=== PATIENT | female | born 1940 | race Caucasian/White ===

== ENCOUNTER 2018-04-01 08:02 | Day surgery (SDC) | payer MEDICARE, SELFPAY ==
[2018-03-30 11:08] LABS: Hemoglobin 13.9 g/dl (12.0-15.0); Mean Corp Hgb Conc 31.6 g/gl (32-36); Mean Corpuscular Hgb 27.5 pg (27.0-32.0); Mean Corpuscular Volume 87.1 fL (81-99); Mean Platelet Vol. 9.8 fl (6.2-12.0); Platelet Count 297 K/mm3 (150-450); RBC Distribution Width SD 44.1 fl (35.1-43.9); Red Blood Count 5.05 M/mm3 (4.2-5.4); Scan Indicated on CBC? Y/N NO
[2018-04-01 08:30] VITALS: BP 140/76; PULSE 56; RESP 16; TEMP 36.2; O2SAT 98; BMI 34.9
--- NOTE | 2018-04-01 10:18 | PCM.DC.D&C ---
Discharge Diet: No Restrictions Discharge Activity: Return to Normal Activity, May Shower, May Take a Tub Bath - in 2 weeks. May resume sexual activity in: No Restrictions Allergies/Adverse Reactions: Allergies No Known Allergies Allergy (Verified 03/25/18 13:06) Medications to take at Discharge Bisacodyl [Dulcolax] 5 mg PO DAILY 03/25/18 Ibuprofen 200 mg PO PRN PRN 03/25/18 Metoprolol Tartrate [Lopressor (Beta Claudette)] 12.5 mg PO BID 03/25/18 Ranitidine [Zantac] 150 mg PO PRN PRN 03/25/18 Triamterene 37.5MG/Hctz 25MG [Dyazide (G)] 1 cap PO DAILY 03/25/18 Primary Care Physician: Emeka Dugan MD [Primary Care Provider] -
--- NOTE | 2018-04-01 10:20 | PCM.OP.BLANK ---
Operative Report Date of Procedure: 04/01/[address] Seble Reinoso Devil Dog: None Preoperative diagnosis: Postmenopausal bleeding, endometrial polyps Postoperative diagnosis: Same Procedure performed: Attempted dilatation of the cervical os Findings: Grade 3 cystocele, grade 2 uterine prolapse, stenotic cervical os unable to penetrate with the lacrimal duct dilators. Locations: None Anesthesia: MAC Estimated blood loss: None Implantable devices: None Drains: None Operative note: Patient was taken to the operating room she was placed in supine position she was given anesthesia. She was then placed in the [facility] where she was prepped and draped in normal sterile fashion. At this time the weighted speculum space the posterior fornix vagina single-tooth tenaculum was used to gently grasp anterior lip the cervix. Again prolapse was appreciated cystocele grade 3 and a uterine prolapse grade 2. At this time only a small divot where the cervical os should be was appreciated. Lacrimal duct dilators were attempted however unable to penetrate through the cervical os. At this time procedure was stopped. I will recommend this patient see Dr. Kathy Serrano at [facility] for hysteroscopy and polypectomy. Vaginal sweep was negative after the tenaculum was removed good hemostasis was appreciated.
--- NOTE | 2018-04-01 10:23 | OP.PCM_ITS ---
Operative Report Date of Procedure: 04/01/[address] Seble Reinoso [employer]: None Preoperative diagnosis: Postmenopausal bleeding, endometrial polyps Postoperative diagnosis: Same Procedure performed: Attempted dilatation of the cervical os Findings: Grade 3 cystocele, grade 2 uterine prolapse, stenotic cervical os unable to penetrate with the lacrimal duct dilators. Locations: None Anesthesia: MAC Estimated blood loss: None Implantable devices: None Drains: None Operative note: Patient was taken to the operating room she was placed in supine position she was given anesthesia. She was then placed in the [facility] where she was prepped and draped in normal sterile fashion. At this time the weighted speculum space the posterior fornix vagina single-tooth tenaculum was used to gently grasp anterior lip the cervix. Again prolapse was appreciated cystocele grade 3 and a uterine prolapse grade 2. At this time only a small divot where the cervical os should be was appreciated. Lacrimal duct dilators were attempted however unable to penetrate through the cervical os. At this time procedure was stopped. I will recommend this patient see Dr. Kathy Srerano at [facility] for hysteroscopy and polypectomy. Vaginal sweep was negative after the tenaculum was removed good hemostasis was appreciated.
[2018-04-01 10:26] VITALS: BP 104/48; BP 140/76; PULSE 55; RESP 16; TEMP 37; O2SAT 99
[2018-04-01 10:30] VITALS: BP 110/54; BP 140/76; PULSE 63; RESP 16; O2SAT 97
[2018-04-01 10:45] VITALS: BP 125/58; BP 140/76; PULSE 54; RESP 16; TEMP 37.1; O2SAT 94
[2018-04-01 11:05] VITALS: BP 140/76
== END 2018-04-01 11:15 | disposition home or self-care (01) ==
LOC: SDC 08:02 → AC 08:03
PROVIDERS: Family Provider Family Medicine; PCP Family Medicine; Visit Provider Obstetrics & Gynecology
PROC: (CPT 57800; principal; 2018-04-01 09:15)
DX: N81.10 Cystocele, unspecified (principal); N95.0 Postmenopausal bleeding; N84.0 Polyp of corpus uteri; N81.2 Incomplete uterovaginal prolapse; N88.2 Stricture and stenosis of cervix uteri; I10 Essential (primary) hypertension; K21.9 Gastro-esophageal reflux disease without esophagitis
CPT/HCPCS: 57800; 36415; 85027; J7120; J2405